=== PATIENT | male | born 2000 | race Caucasian/White ===

== ENCOUNTER → 2019-05-02 | Outpatient (CLI) | payer OTHER ==
[2019-05-02 13:15] LABS: CHOLESTEROL 156.66 mg/dL (0-200); TRIGLYCERIDES 314 mg/dL (<150)
[2019-05-02 13:26] LABS: DIRECT LDL 89 mg/dL (<100)
[2019-05-02 13:30] LABS: VLDL CHOLESTEROL 62.8 mg/dL (10-31)
== END ==
LOC: OD 12:08
PROVIDERS: ATTEND Nurse Practitioner Family
DX: Z13.220 Encounter for screening for lipoid disorders (principal)
CPT/HCPCS: 36415; 80061